=== PATIENT | male | born 1995 | race Caucasian/White ===

== ENCOUNTER 2017-06-29 23:23 | Emergency (ER) | payer BC ==
[2017-06-29] MEDS ORDERED: diPHENhydraMINE PO* 25 MG PO ONE (23:52)
[2017-06-29] MEDS ORDERED: Ibuprofen TAB* 400 MG PO ONE (23:52)
[2017-06-30 00:39] LABS: Urine Appearance Cloudy; Urine Blood Negative (Negative); Urine Color Yellow; Urine Ketones Negative (Negative); Urine Protein 1+(30 mg/dL) (Negative); Urine Specific Gravity 1.024 (1.010-1.030); Urine Urobilinogen Negative (Negative)
[2017-06-30] MEDS ORDERED: Docusate CAP* 100 MG PO ONE (00:58)
[2017-06-30 01:21] VITALS: BP 115/53
--- NOTE | 2017-06-30 05:42 | ED ---
Shelly Rivero Emily, scribed for Jesus Alberto Harrell MD on 06/29/17 at 2354 . Abdominal Pain/Male - HPI Summary HPI Summary: This patient is a 21 year old M presenting to [facility] with a chief complaint of mid-abdominal pain that began at 2315. 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 The patient rates the pain 3/10 in severity. Symptoms aggravated by attempts to urinate and defecate. Symptoms alleviated by nothing. Patient reports recent weight gain. - History of Current Complaint Chief Complaint: EDAbdPain Stated Complaint: ABD PAIN Time Seen by Provider: 06/29/17 23:43 Hx Obtained From: Patient Onset/Duration: Sudden Onset, Lasting Minutes, Still Present Timing: Constant Severity Initially: Moderate Severity Currently: Moderate Pain Intensity: 3 Pain Scale Used: 0-10 Numeric Location: Other - Mid-abdominal Radiates: No Character: Sharp Aggravating Factor(s): Other: - Attempts to urinate and defecate Alleviating Factor(s): Nothing Associated Signs And Symptoms: Positive: Other - Positive recent weight gain - Allergies/Home Medications Allergies/Adverse Reactions: Allergies Allergy/AdvReac Type Severity Reaction Status Date / Time No Known Allergies Allergy Verified 06/29/17 23:26 PMH/Surg Hx/FS Hx/Imm Hx Previously Healthy: Yes Opthamlomology History: Denies: Hx Legally Blind EENT History: Denies: Hx Deafness Infectious Disease History: No Infectious Disease History: Denies: Traveled Outside the [place] in Last 30 Days - Family History Known Family History: Positive: Other - Negative abdominal diseases - Social History Occupation: Student Lives: Dormitory/Roommates Alcohol Use: None Hx Substance Use: No Substance Use Type: Reports: None Hx Tobacco Use: No Smoking Status (MU): Never Smoked Tobacco Review of Systems Negative: Fever Positive: Abdominal Pain, Other - Positive recent weight gain All Other Systems Reviewed And Are Negative: Yes Physical Exam - Summary Physical Exam Summary: Appearance: Well appearing, no pain distress Skin: warm, dry, reflects adequate perfusion Head/face: normal Eyes: EOMI, KEN ENT: normal Neck: supple, non-tender Respiratory: CTA, breath sounds present Cardiovascular: RRR, pulses symmetrical Abdomen: soft, Mild diffuse discomfort with deep palpation. Negative McBurneys sign. Negative Milton sign. Negative psoas. Mild RLQ tenderness Bowel Sounds: present Musculoskeletal: normal, strength/ROM intact Neuro: normal, sensory motor intact, A&Ox3 Triage Information Reviewed: Yes Vital Signs On Initial Exam: Initial Vitals Temp Pulse Resp BP Pulse Ox 98.5 F 78 16 135/71 100 06/29/17 23:24 06/29/17 23:24 06/29/17 23:24 06/29/17 23:24 06/29/17 23:24 Vital Signs Reviewed: Yes Diagnostics - Vital Signs Vital Signs Temp Pulse Resp BP Pulse Ox 06/29/17 23:24 98.5 F 78 16 135/71 100 - Laboratory Lab Results: Lab Results 06/30/17 Range/Units 00:03 Urine Color Yellow Urine Appearance Cloudy Urine pH 8.0 (5-9) Ur Specific [place] 1.024 (1.010-1.030) Urine Protein 1+(30 mg/dl) A (Negative) Urine Ketones Negative (Negative) Urine Blood Negative (Negative) Urine Nitrate Negative (Negative) Urine Bilirubin Negative (Negative) Urine Urobilinogen Negative (Negative) Ur Leukocyte Esterase Negative (Negative) Urine WBC (Auto) Absent (Absent) Urine RBC (Auto) Absent (Absent) Urine Bacteria Absent (Absent) Urine Glucose Negative (Negative) Lab Statement: Any lab studies that have been ordered have been reviewed, and results considered in the medical decision making process. - Radiology Abd XR Radiology Interpretation Completed By: ED Physician - Abdominal XR reveals, per ED physician, stool in R coln, non-specific bowel gas pattern, and no obstruction - Additional Comments Diagnostic Additional Comments: US abdomen limited reveals, per radiologist, appendix not visualized. Technically negative for appendicitis. 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 ED physician has reviewed this radiology report. Re-Evaluation - Re-Evaluation First Eval Re-Evaluation Time: 00:53 Change: Improved Comment: Pt reports that his pain is completely gone. I re-examined his RLQ, and there was no pain Abdominal Pain Fem Course/Dx - Course Course Of Treatment: Pt very well appearing with min tenderness in the RLQ after abrupt onset of sx. These have gone away. His RLQ was reexamined and is non-tender. I actually marked Leonarda's pt for the patient and gave him return precautions for appy. It appears as though his R sided stool is likely causative. US did not visualize appendix, likely due to stool and gas. - Diagnoses Differential Diagnosis/HQI/PQRI: Appendicitis, Bowel Obstruction, Constipation Provider Diagnoses: Generalized abdominal pain Discharge - Sign-Out/Discharge Documenting (check all that apply): Discharge - Discharge Plan Condition: Good Disposition: HOME Prescriptions: Polyethylene Glycol 3350 BTL* [Miralax] 238 gm PO TID #1 btl Patient Education Materials: Acute Abdominal Pain (ED) Referrals: Count Includes [facility] [Z.[email or web address], APPLICATION, OTHER] - Additional Instructions: Ibuprofen or benadryl for cramping. Liquid diet until well. Return with fever, increased pain in the right low abdomen, vomiting, worse or other concerns as discussed. See [facility] Saturday if still having pain. The documentation as recorded by the Shelly urena Emily accurately reflects the service I personally performed and the decisions made by me, Jesus Alberto Harrell MD.
--- NOTE | 2017-06-30 07:48 | RAD ---
HISTORY: Abdominal cramping COMPARISONS: None VIEWS: Frontal views of the abdomen. FINDINGS: BOWEL: There is a nonspecific bowel gas pattern, with nondilated small bowel gas noted. There is a large amount of stool within the ascending colon. CALCULI: There are no abnormal calculi. BONES AND SOFT TISSUES: There are no osseous abnormalities. OTHER FINDINGS: The lung bases are clear. There is no subphrenic gas. IMPRESSION: NONSPECIFIC BOWEL GAS PATTERN.
--- NOTE | 2017-06-30 07:50 | RAD ---
HISTORY: Right lower quadrant pain COMPARISONS: None TECHNIQUE: Multiple transverse and longitudinal ultrasound images were obtained of the right lower quadrant using grayscale and color Doppler imaging. FINDINGS: The appendix is not visualized. There is no free or loculated fluid within the right lower quadrant. IMPRESSION: THE APPENDIX IS NOT VISUALIZED. THERE IS NO FREE OR LOCULATED FLUID WITHIN THE RIGHT LOWER QUADRANT.
== END 2017-06-30 01:15 | disposition home or self-care (01) ==
LOC: ED 23:23
DX: R10.84 Generalized abdominal pain (principal)
CPT/HCPCS: 74018; 76705; 81003; 81015; 99283; A9270-GY